=== PATIENT | male | born 1980 | race Caucasian/White ===

== ENCOUNTER 2025-03-17 12:57 | Emergency (ER) | payer BC, SELFPAY ==
--- NOTE | ~2025-03-17 | XR_ITS ---
XR chest 2V Ordering provider: Nam Mg MD History: 44 years Male with . chest pain . Comparison: None. FINDINGS: MEDIASTINUM: The cardiac silhouette is not enlarged. LUNGS: No infiltrates, effusions or pneumothorax. OTHER: No free air under the diaphragm. IMPRESSION: No acute cardiopulmonary pathology. Reviewed, dictated and finalized at location A.
--- NOTE | 2025-03-17 12:58 | ECG_ITS ---
Test Date: 2025-03-17 13:01:54 Measurements Intervals [place] Rate: 59 P: 20 HI: 167 QRS: 73 QRSD: 91 T: 45 QT: 429 QTc: 428 Interpretive Statements SINUS BRADYCARDIA BORDERLINE ECG No previous ECG available for comparison Electronically Signed On 03-17-2025 13:05:33 CDT by Jeremy Abraham D.O.
[2025-03-17 13:10] VITALS: BP 154/96; PULSE 73; RESP 18; TEMP 36.5; O2SAT 100
[2025-03-17 13:12] LABS: Basophils Absolute Auto 0.1 K/mm3 (0.0-0.1); Basophils Percent Auto 1.2 % (0.2-1.2); Eosinophils Absolute Auto 0.1 K/mm3 (0-0.3); Hematocrit 42.2 % (42.0-52.0); Hemoglobin 14.6 g/dL (14.0-18.0); Immature Granulocyte Absolute 0.01 K/mm3 (0.00-0.031); Immature Granulocyte Percent A 0.2 % (0-0.5); Lymphocytes Absolute Auto 1.84 K/mm3 (0.9-3.2); Lymphocytes Percent Auto 31.8 % (18.3-44.2); Mean Corpuscular HGB Conc 34.6 g/dl (32-36); Mean Corpuscular Hemoglobin 32.6 pg (26-34); Mean Corpuscular Volume 94.2 fl (80-100); Mean Platelet Volume 9.7 fl (7.4-10.4); Monocytes Absolute Auto 0.5 K/mm3 (0.1-0.6); Monocytes Percent Auto 8.3 % (2.6-8.5); Neutrophils Absolute Auto 3.3 K/mm3 (1.3-6.7); Neutrophils Percent Auto 57.5 % (45.5-73.1); Platelet Count Result 178 k/mm3 (150-375); Red Blood Count 4.48 M/mm3 (4.6-6.20); Red Cell Distribution Width 12.1 % (11.5-14.5); White Blood Count 5.8 K/mm3 (4.5-10.0)
[2025-03-17 13:22] LABS: Alanine Aminotransferase 87 U/L (6-50); Alkaline Phosphatase 59 U/L (38-126); Anion Gap 7 mmol/L (4-12); Aspartate Amino Transferase 76 U/L (17-59); Blood Urea Nitrogen 12 mg/dL (9-20); Calcium 9.7 mg/dL (8.4-10.2); Carbon Dioxide 27 mmol/L (22-30); Chloride 101 mmol/L (98-107); Estimated CRCL calculation 98 ml/min; Estimated Glomerular Filt Rate > 60; Glucose 97 mg/dL (65-110); Lipase 92 U/L (23-300); Sodium 135 mmol/L (137-145); Total Protein 8.1 g/dL (6.3-8.2)
[2025-03-17 13:30] LABS: Prothrombin Time 13.8 Seconds (11.1-14.7)
[2025-03-17 13:31] LABS: Partial Thromboplastin Time 28.5 Seconds (22.3-36.8)
[2025-03-17 13:34] LABS: Troponin I < 0.012 ng/mL (0.000-0.034)
[2025-03-17 14:22] VITALS: BP 147/101; PULSE 65; PULSE 67; RESP 17; TEMP 36.4; O2SAT 100
[2025-03-17] MEDS: ASPIRIN 81 MG CHEWABLE TABLET 324 MG PO (14:30)
[2025-03-17] MEDS: Please add drug allergy info to patient profile. 1 EACH XX (14:31)
[2025-03-17 15:39] VITALS: BP 156/103; PULSE 68; RESP 19; O2SAT 99
--- NOTE | 2025-03-17 15:55 | ECG_ITS ---
Test Date: 2025-03-17 16:02:47 Measurements Intervals [place] Rate: 62 P: 48 TX: 188 QRS: 64 QRSD: 110 T: 40 QT: 427 QTc: 436 Interpretive Statements SINUS RHYTHM NORMAL ECG Compared to ECG 03/17/2025 13:01:54 NO SIGNIFICANT CHANGE Electronically Signed On 03-17-2025 16:14:10 CDT by Jeremy Abraham D.O.
--- NOTE | 2025-03-17 16:00 | ED.GENADULT ---
HPI - General Adult General Chief complaint: Chest Pain Stated complaint: Chest pain Time Seen by Provider: 03/17/25 13:59 History of Present Illness HPI narrative: 44-year-old male presents to the emergency department for evaluation for leg pain and chest pain. Patient states he was at work and was at rest when he had onset of left thigh pain. Patient states this was a quick muscle spasm that quickly resolved. Patient states approximately 10 minutes later he did have some epigastric chest tightness. Patient states he does have a history of GERD but states this felt different. Patient has no prior history of coronary artery disease. Patient has never had a stress test. Patient denies any current chest pain or shortness of breath. Patient states he does not work out but does not have any exertional shortness of breath with walking. Related Data Allergies Allergy/AdvReac Type Severity Reaction Status Date / Time Penicillins Allergy Unknown Verified 03/17/25 14:25 Review of Systems Review of Systems: All systems reviewed & are unremarkable except as noted in HPI and below Exam Narrative: APPEARANCE: Well appearing, no pain, no distress, well-nourished. HEAD: normocephalic, atraumatic. EYES: PERRLA/EOMI, conjunctivae clear. NOSE: Normal no drainage EARS:TMS clear with good light reflex. THROAT: Pharynx clear, no exudate. NECK: Supple. No adenopathy, no masses. RESPIRATORY: Airway patent, respirations nonlabored. Clear to auscultation bilaterally, no rales, rhonchi, wheezing. CARDIOVASCULAR: Regular rate and rhythm without murmurs rubs or gallops. ABDOMINAL: Soft, nontender, nondistended, normal bowel sounds MUSCULOSKELETAL: Moves all extremities. Strength/ROM intact, No edema, No calf tenderness. NEURO: Alert. Cranial nerves II through XII intact. Good gait. Good coordination SKIN: Warm, dry. Normal Color Course Vital Signs Vital signs: Vital Signs Temperature 97.7 F 03/17/25 13:10 Pulse Rate 73 03/17/25 13:10 Respiratory Rate 18 03/17/25 13:10 Blood Pressure 154/96 H 03/17/25 13:10 Pulse Oximetry 100 03/17/25 13:10 Oxygen Delivery Room Air 03/17/25 13:10 Temperature 97.5 F L 03/17/25 14:22 Pulse Rate 88 03/17/25 16:30 Respiratory Rate 18 03/17/25 16:30 Blood Pressure 155/102 H 03/17/25 16:30 Pulse Oximetry 100 03/17/25 16:30 Oxygen Delivery Room Air 03/17/25 14:22 Medical Decision Making MDM Narrative Medical decision making narrative: 44-year-old male present to the emergency department for evaluation for posterior leg pain that was short lasting and resolved and substernal chest pain that has also resolved. Patient is currently afebrile with no leukocytosis hemoglobin of 14.6. Patient has an INR 1.0. No acute abnormalities on the patient's CMP. Patient's magnesium was 1.5 and this was replaced through IV. Patient had negative serial troponins and negative serial EKGs that showed no evidence of acute infarction. Chest x-ray shows no acute cardiopulmonary abnormality. Patient will be discharged home with instructions to have close follow-up for additional outpatient cardiac testing. Differential Diagnosis Differential Diagnosis: Hypomagnesemia, hypokalemia, ACS, pneumonia, pulmonary embolism, pneumothorax, gastritis, esophageal spasm Vital Signs Vital Signs: Vital Signs Temperature 97.7 F 03/17/25 13:10 Pulse Rate 73 03/17/25 13:10 Respiratory Rate 18 03/17/25 13:10 Blood Pressure 154/96 H 03/17/25 13:10 Pulse Oximetry 100 03/17/25 13:10 Oxygen Delivery Room Air 03/17/25 13:10 Temperature 97.5 F L 03/17/25 14:22 Pulse Rate 88 03/17/25 16:30 Respiratory Rate 18 03/17/25 16:30 Blood Pressure 155/102 H 03/17/25 16:30 Pulse Oximetry 100 03/17/25 16:30 Oxygen Delivery Room Air 03/17/25 14:22 Lab Data Lab results reviewed: Yes I reviewed the patient's lab results. 03/17/25 13:08 03/17/25 13:08 Labs: Lab Results 03/17/25 03/17/25 Range/Units 13:08 16:01 WBC 5.8 (4.5-10.0) K/mm3 RBC 4.48 L (4.6-6.20) M/mm3 Hgb 14.6 (14.0-18.0) g/dL Hct 42.2 (42.0-52.0) % MCV 94.2 (80-100) fl MCH 32.6 (26-34) pg MCHC 34.6 (32-36) g/dl RDW 12.1 (11.5-14.5) % Plt Count 178 (150-375) k/mm3 MPV 9.7 (7.4-10.4) fl Immature Gran % (Auto) 0.2 (0-0.5) % Neut % (Auto) 57.5 (45.5-73.1) % Lymph % (Auto) 31.8 (18.3-44.2) % [place] % (Auto) 8.3 (2.6-8.5) % Eos % (Auto) 1.0 (0-4.4) % Baso % (Auto) 1.2 (0.2-1.2) % Lymph # (Auto) 1.84 (0.9-3.2) K/mm3 [place] # (Auto) 0.5 (0.1-0.6) K/mm3 Eos # (Auto) 0.1 (0-0.3) K/mm3 Baso # (Auto) 0.1 (0.0-0.1) K/mm3 Abs Immat Gran (auto) 0.01 (0.00-0.031) K/mm3 Absolute Neuts (auto) 3.3 (1.3-6.7) K/mm3 Absolute Nucleated RBC 0.000 (0.0-0.012) K/mm3 Nucleated RBC % 0.0 (0.0-0.2) % PT 13.8 (11.1-14.7) Seconds INR 1.0 APTT 28.5 (22.3-36.8) Seconds Sodium 135 L (137-145) mmol/L Potassium 4.0 (3.4-5.0) mmol/L Chloride 101 (98-107) mmol/L Carbon Dioxide 27 (22-30) mmol/L Anion Gap 7 (4-12) mmol/L BUN 12 (9-20) mg/dL Creatinine 1.02 (0.7-1.3) mg/dL Estim Creat Clear Calc 98 ml/min Estimated GFR > 60 (59 - ) Glucose 97 (65-110) mg/dL Calcium 9.7 (8.4-10.2) mg/dL Magnesium 1.5 L (1.6-2.3) mg/dL Total Bilirubin 1.0 (0.2-1.3) mg/dL AST 76 H (17-59) U/L ALT 87 H (6-50) U/L Alkaline Phosphatase 59 (38-126) U/L Troponin I < 0.012 < 0.012 (0.000-0.034) ng/mL Total Protein 8.1 (6.3-8.2) g/dL Albumin 5.0 (3.5-5.1) g/dL Lipase 92 (23-300) U/L TSH (Reflex) 2.160 (0.465-4.68) uIU/mL Imaging Data Radiologist's impression: Impressions Chest X-Ray 03/17/25 13:33 IMPRESSION: No acute cardiopulmonary pathology. Discharge Plan Discharge Clinical Impression: Atypical chest pain, Thigh cramp Patient Disposition: Home Condition: Stable Instructions: Antibiotic Form, Chest Pain (ED) Additional Instructions: Drink plenty of fluids. Have close follow-up with your primary care physician for additional outpatient cardiac testing. If you have any worsening symptoms then please call or return to the emergency department. Patient Language: [place]ian Follow-up/Referrals: PHYSICIAN NOT ON STAFF,NONSTAFF [Primary Care Provider] - Quality HEART score for chest pain patients History: slightly suspicious ECG: normal Age: < or = to 45 years Risk factors: 1 or 2 risk factors Troponin: < or = to 1x normal limit Heart score: 1
[2025-03-17 16:17] LABS: Magnesium 1.5 mg/dL (1.6-2.3)
[2025-03-17] MEDS: BELLADONNA ALK/PHENOB ELIX 10 ML, MAG HYDROX/ALUMINUM HYD/SIMETH 30 ML, LIDOCAINE 2% VI... PO (16:28)
[2025-03-17 16:30] VITALS: BP 155/102; PULSE 88; RESP 18; O2SAT 100
[2025-03-17 16:46] LABS: Troponin I < 0.012 ng/mL (0.000-0.034)
== END 2025-03-17 17:37 | disposition home or self-care (01) ==
PROVIDERS: Emergency Provider Emergency Medicine
DX: R07.89 Other chest pain (principal); R25.2 Cramp and spasm; K21.9 Gastro-esophageal reflux disease without esophagitis
CPT/HCPCS: 36415; 71046; 80053; 83690; 83735; 84443; 84484; 85025; 85610; 85730; 93005; 99284; A9270